=== PATIENT | male | born 1965 | race Caucasian/White ===

== ENCOUNTER 2017-10-01 06:49 | Day surgery (SDC) | payer BC ==
[~2017-10-01] VITALS: Ht 180.3 cm; Wt 86.4 kg
[2017-10-01 07:02] VITALS: BP 134/63
[2017-10-01] MEDS ORDERED: PAPA1TAB10 PO (07:10)
[2017-10-01] MEDS ORDERED: fentaNYL/PF 50MCG/1 ML 2ML syringe ONE ×2 (07:14→08:32)
[2017-10-01] MEDS ORDERED: MIDAZolam 1mg/ml 10ml vial ONE (07:15)
[2017-10-01] MEDS ORDERED: LIDOcaine Viscous 15ml cup ONE (07:15)
[2017-10-01 08:55] VITALS: BP 125/76
[2017-10-01 09:05] VITALS: BP 112/70
[2017-10-01 09:15] VITALS: BP 114/80
== END 2017-10-01 09:25 | disposition home or self-care (01) ==
LOC: GI LAB 06:49
PROVIDERS: ATTEND Internal Medicine Gastroenterology
DX: K63.5 Polyp of colon (principal); K29.50 Unspecified chronic gastritis without bleeding
CPT/HCPCS: 43239; 45385; 99152; 99153; J2250; J3010; J7030; A4620; G0500